=== PATIENT | female | born 1985 | race Caucasian/White ===

== ENCOUNTER → 2016-12-29 | Day surgery (SDC) | payer OTHER ==
[~2016-12-29] VITALS: Ht 160 cm; Wt 62.0 kg
[~2016-12-29] MED LIST: 0.9% Sodium Chloride 1,000 ML IV ONE; 0.9% Sodium Chloride 1,000 ML IV SCH; ACET-1917 PO; AMT25T PO; BETA30LO2 TP; ETHY1TAB4 PO; EXCEDRIN MIGRAINE PO; FLUO40CA12 PO; HYOS0.1281 SL; LORA-303 PO; OMEP20TA24 PO; OMEP40CA36 PO; Sodium Chloride LOK Flush 10 mL Syringe IV PRN; TOPI100T32 PO; TOPI50TA32 PO; VALA100026 PO; fentaNYL-PF 50 mCg/mL 2 mL Inj IVPUSH PRN
[2016-12-29 14:53] VITALS: BP 116/73; PULSE 113; RESP 16; O2SAT 100
[2016-12-29 16:31] VITALS: BP 130/79; PULSE 113; RESP 14; O2SAT 99
[2016-12-29 16:37] VITALS: BP 103/62; PULSE 108; RESP 14; O2SAT 97
--- NOTE | 2017-01-04 10:32 | PATH ---
SURGICAL PATHOLOGY Attending Physician:Greg Franco CASE STATUS: Signed Out PATIENT NAME: MARK RABAGO PID: [id number] : 1985 DATE COLLECTED:12/29/2016 00:00 SPECIMEN: 1: Duodenum, Biopsy 2: Gastric, Biopsy CLINICAL HISTORY: 1). DUODENAL BIOPSY 2). GASTRIC BIOPSY - RULE OUT H PYLORI FINAL DIAGNOSIS: 1.DUODENAL BIOPSY: SMALL BOWEL MUCOSA WITH NO DIAGNOSTIC ABNORMALITY. No evidence of acute inflammation, features of sprue, dysplasia, and malignancy. 2.GASTRIC BIOPSY, RULE OUT H.PYLORI: GASTRIC ANTRAL-TYPE AND BODY-TYPE MUCOSA WITH MILD CHRONIC GASTRITIS. Negative for Helicobacter organisms by immunohistochemistry. Negative for intestinal metaplasia. Negative for dysplasia and malignancy. [id number] GROSS DESCRIPTION: The specimen is received in two formalin filled containers labeled with the patient's name. 1). The specimen is labeled "duodenal" and consists of 2 portions of tissue which aggregate to 0.2 x 0.2 x 0.2 CM. The specimen is entirely submitted in cassette 1A. 2). The specimen is labeled "gastric" and consists of 3 portions of tissue which aggregate to 0.4 x 0.4 x 0.2 CM. The specimen is entirely submitted in cassette 2A. 01/01/2017DC MICRO DESCRIPTION: 2. An immunohistochemical stain was performed to evaluate for Helicobacter organisms and is negative. A control stain showed appropriate reactivity. This test was developed and its performance characteristics determined by [facility]. It has not been cleared or approved by the [place]. Food and Drug Administration. The FDA has determined that such clearance or approval is not necessary. This test is used for clinical purposes. It should not be regarded as investigational or for research. ICD-9 CODES: CPT CODES: 1: 13614 2: 27170, 19270 Electronically Signed Out Dave Chaves MD [facility] Pathology [facility] [address], [place] [address] Technical component performed at [facility], [address], [place], [address]
--- NOTE | 2017-01-11 00:55 | ENDO ---
[address] [address] ENDOSCOPY PROCEDURE PATIENT: MARK RABAGO : 1985 MR#: [id number] ADMIT: 12/29/2016 JOB ID: [id number] DATE OF PROCEDURE: 12/29/2016 PROCEDURE: Esophagogastroduodenoscopy. INDICATION: Melena. ANESTHESIA: Patient's ASA classification is I. Mallampati score is 2. MEDICATIONS: 1. Versed 8 mg. 2. Fentanyl 175 mcg. That was for EGD, as well as colonoscopy procedure that followed. INSTRUMENT USED: GIF-H180J. PROCEDURE DETAILS: After informed consent was obtained, the patient was brought into the GI suite, where she was placed on oxygen via nasal cannula and monitored with continuous pulse oximeter, telemetry, and blood pressure monitoring. A time-out was performed. Then, she was placed in the left lateral decubitus position and medications were administered for sedation. A bite block was placed. The standard EGD scope was inserted through the bite block and advanced under direct visualization to the second portion of duodenum without difficulty. FINDINGS: 1. Normal appearing duodenal bulb, first and second portion. Multiple random biopsies were obtained. 2. Normal appearing pylorus antrum and gastric body. 3. Retroflexed views in the gastric body revealed a normal appearing cardia and fundus. 4. Multiple random biopsies were obtained throughout the antrum and body of the stomach. 5. Normal appearing GE junction with a regular Z-line. 6. Normal appearing esophagus. IMPRESSION: Normal esophagogastroduodenoscopy exam to second portion of duodenum. RECOMMENDATIONS: 1. Await biopsy results. 2. Proceed to colonoscopy. PROCEDURE PERFORMED: Colonoscopy. INDICATION: Change in bowel habits and melena. ANESTHESIA: Please see above for ASA classification, Mallampati score, and medications. INSTRUMENT USED: [id number]. PREPARATION QUALITY: Was good. PROCEDURE DETAILS: After completion of the EGD exam, the patient was turned and then a digital rectal exam was performed which was unremarkable. The colonoscope was then inserted into the rectum and advanced under direct visualization to the cecum, which was identified by the presence of the ileocecal valve and appendiceal orifice. Once the cecum was reached, the colonoscope was withdrawn back into the rectum and the mucosa and lumen were examined. In the rectum, retroflexion was performed. Following retroflexion, remaining air in the rectum was suctioned, and procedure was completed. FINDINGS: Normal exam from rectum to cecum. IMPRESSION: Normal colonoscopy. RECOMMENDATIONS: Follow up in GI clinic. COMPLICATIONS: None. ESTIMATED BLOOD LOSS: Zero.
== END | disposition home or self-care (01) ==
LOC: END 00:08
PROVIDERS: ATTEND Internal Medicine Gastroenterology
DX: K29.50 Unspecified chronic gastritis without bleeding (principal); R19.4 Change in bowel habit; K92.1 Melena; R10.13 Epigastric pain; K21.9 Gastro-esophageal reflux disease without esophagitis; E78.5 Hyperlipidemia, unspecified; K90.41 Non-celiac gluten sensitivity
CPT/HCPCS: 43239; 45378; 99153; G0500; J2250; J3010; J7030